=== PATIENT | female | born 1945 | race Caucasian/White ===

== ENCOUNTER 2024-01-09 20:08 | Emergency (ER) | payer MEDICARE, BC ==
[2024-01-09] MEDS ORDERED: SODIUM CHLORIDE 0.9% 1,000 ML BAG ONE (23:59)
--- NOTE | 2024-02-20 08:20 | XR ---
Patient Kirti Dhillon ID [id number] Order # EXAMINATION TYPE: XR chest 2V DATE OF EXAM: 01/21/2024 COMPARISON: No comparison available on downtime PACS. INDICATION: Unknown TECHNIQUE: Frontal and lateral views of the chest are obtained. FINDINGS: The heart size is normal. The pulmonary vasculature is normal. The lungs are clear. Catheter overlies left neck extending to the mid chest level. Distal tip is not identified. Right shoulder prosthesis is noted. IMPRESSION: 1. No acute pulmonary process.
== END 2024-01-10 01:02 | disposition home or self-care (01) ==
LOC: EC 20:08
DX: E11.649 Type 2 diabetes mellitus with hypoglycemia without coma (principal); E86.0 Dehydration; Z88.5 Allergy status to narcotic agent; Z88.8 Allergy status to other drugs, medicaments and biological substances
CPT/HCPCS: 36415; 71046; 80053; 81003; 84484; 85025; 85652; 87636; 93005; 99285

== ENCOUNTER → 2024-02-12 | Outpatient (CLI) | payer MEDICARE | END | disposition home or self-care (01) | LOC: LABWHC1 16:32 | PROVIDERS: ATTEND Ophthalmology | DX: M31.6 Other giant cell arteritis (principal) | CPT/HCPCS: 36415; 85652; 86140 ==